=== PATIENT | male | born 1975 | race Caucasian/White ===

== ENCOUNTER 2018-09-23 10:42 | Emergency (ER) | payer MEDICARE, OTHER ==
[~2018-09-23] VITALS: Ht 167.6 cm; Wt 72.6 kg
[~2018-09-23 10:42] MED LIST: CITALOPRAM HBR40 MG PO; DEBROX15 ML OT; DIVALPROEX SOD500 M1 PO; FLOVENT DISKUS50 MCG IH; GABAPENTIN400 MG PO; HYDROCERIN CRE454 GM TP; IBUPROFEN200 M1 PO; IBUPROFEN400 MG PO; LOPERAMIDE2 MG PO; LORATADINE10 MG PO; MELOXICAM15 MG PO; TRIPLE ANTIBIOT28 GM TP
[2018-09-23] MEDS ORDERED: WELLBUTRIN XL300 MG PO (11:15)
[2018-09-23] MEDS ORDERED: HYDROCHLOROTH12.5 M1 PO (11:16)
[2018-09-23] MEDS ORDERED: RISPERDAL0.5 MG PO ×2 (11:17→12:27)
[2018-09-23] MEDS ORDERED: OMEPRAZOLE20 MG PO (11:17)
[2018-09-23] MEDS ORDERED: VITAMIN D250000 UNIT PO (11:18)
[2018-09-23] MEDS ORDERED: CITALOPRAM HBR40 MG PO (12:27)
[2018-09-23] MEDS ORDERED: BUPROPION XL300 MG PO (12:27)
[2018-09-23] MEDS ORDERED: NEURONTIN400 MG PO (12:27)
== END 2018-09-23 12:50 | disposition home or self-care (01) ==
LOC: ED 10:42
DX: Z76.0 Encounter for issue of repeat prescription (principal); F31.9 Bipolar disorder, unspecified; Z79.899 Other long term (current) drug therapy
CPT/HCPCS: 99281

== ENCOUNTER 2024-01-18 06:35 | Day surgery (SDC) | payer MEDICARE, OTHER ==
[2024-01-12 13:29] VITALS: BP 120/71
[~2024-01-18] VITALS: Ht 167.6 cm; Wt 87.1 kg
[~2024-01-18 06:35] MED LIST changes: +BUPROPION XL300 MG PO; +HYDROCHLOROTH12.5 M1 PO; +LACTATED RINGER'S 1,000 ML IV SCH; +NEURONTIN400 MG PO; +OMEPRAZOLE20 MG PO; +RISPERDAL0.5 MG PO; +VITAMIN D250000 UNIT PO; +WELLBUTRIN XL300 MG PO
[2024-01-18 06:43] VITALS: BP 121/75
[2024-01-18] MEDS ORDERED: propofoL 200 MG/20 ML VIAL ONE (06:44)
[2024-01-18] MEDS ORDERED: MIDAZOLAM HCL 5 MG/5 ML VIAL ONE (06:53)
[2024-01-18] MEDS ORDERED: IBLOOD GLUCOSE TEST STRIP 1 EA TEST VI PRN (07:00)
[2024-01-18] MEDS ORDERED: LIDOCAINE HCL 1% 5 ML SDV INJ ONE (07:00)
--- NOTE | 2024-01-18 07:18 | NUR ---
PT JUST LEAVING FOR PROCEDURE. PROVIDED PRAYER.
[2024-01-18] MEDS ORDERED: LACTATED RINGER'S 1,000 ML IV ONE (07:36)
--- NOTE | 2024-01-18 08:01 | NUR ---
01/18/24 0801 Lakeisha Barnett PATIENT ARRIVES IN PACU WITH ORAL AND NASAL AIRWAY IN PLACE TO MOUTH. SNORING RESPIRATIONS HEARD ON INSPIRATION.
[2024-01-18 08:37] VITALS: BP 118/75
--- NOTE | 2024-01-18 10:53 | OR ---
[facility] [address] [place], [place] [address] Signed DATE OF OPERATION: 01/18/2024 SURGEON: Mariely Fang MD PREOPERATIVE DIAGNOSES: 1. Screening. 2. Internal hemorrhoids. POSTOPERATIVE DIAGNOSES: 1. Long redundant colon. 2. 4 mm polyps x2 in left colon. 3. 12 mm polyp distal right colon (#1, snare). 4. 7 mm polyp distal right colon (#2, snare, hot biopsy). 5. Minimal to moderate internal hemorrhoids. PROCEDURE: Colonoscopy with snare polypectomy and hot biopsy. ESTIMATED BLOOD LOSS: None. INDICATIONS: Aniceto is a 48-year-old gentleman with significant mental disabilities and anxiety. He came to us in 2013 at the age of 38 for a colonoscopy due to rectal bleeding. He had some blood associated with bowel movements and wiping. He had some internal hemorrhoids. He had a shallow gluteal pressure injury that has healed as well. Of course, he needed moderate anesthesia care. We had to give him Versed just to transport him from our preop area down the hallway into our endoscopy suite. Consequently, on this occasion we gave him some Xanax before he came in the building. We then gave him additional Versed to get him into the endoscopy suite. To our knowledge, he has no family history of colon cancer or polyps. He seems to have no lower GI complaints currently. He is here mainly for screening purposes. In the office, I met with Aniceto and his caregiver. I gave him a pamphlet on colonoscopy. We reviewed the nature of the test along with the risk including, but not limited to gas bloating, crampy abdominal pain, bleeding, perforation requiring surgery, and missed diagnosis. We also reviewed the written instructions for bowel prep line by line. This is the same bowel prep he took previously. Nevertheless, his bowel prep was not the best today. He should increase the polyethylene glycol to full one gallon and continue with the Dulcolax tablets. In addition, he clearly needs monitored anesthesia care given his mental disabilities and severe anxiety. He and his caregiver had expressed understanding and Electronically Signed By: MARIELY FANG MD 01/18/24 1053 PATIENT NAME: ANICETO TRUJILLO OPERATIVE REPORT DATE OF : 75 REPORT #: [id number] PHYSICIAN: MARIELY FANG MD PCP: BRIONNA POLANCO PA-C REPORT IS CONFIDENTIAL AND NOT TO BE RELEASED WITHOUT AUTHORIZATION [facility] [address] [place], [place] [address] Signed wished to proceed. DESCRIPTION OF PROCEDURE: Aniceto was taken into our endoscopy suite and placed in the left lateral decubitus position. He had received Xanax before he came in the building this morning. We had to give him 5 mg of Versed to transport him from our day surgery area into the endoscopy suite itself. After this, he was given propofol infusion per our nurse soldering machine feeder. A digital rectal exam was performed. He had no external hemorrhoids. He had good sphincter tone. His prostate is starting to get indurated. The adult colonoscope was then introduced and we had to suction out some liquid particulate stool matter from the rectum. We went up through a somewhat tortuous sigmoid colon and somewhat long redundant colon as well. We took two small polyps out of his left colon on our way in. With abdominal compression and increased propofol infusion, we made it around the hepatic flexure and we found two polyps that required the snare and the hot biopsy forceps to be removed completely. It took some effort then in rotating him into the supine position and back in the left lateral decubitus position to get the camera down into the cecum itself. After this, the scope was then slowly withdrawn. We taken several pictures throughout for photodocumentation. We could easily see the appendiceal orifice and the ileocecal valve. He has no diverticulosis. Once in the rectum, the scope was retroflexed and again he just has minimal to moderate internal hemorrhoid columns. The gas was suctioned out and the colonoscope removed. Aniceto tolerated the procedure quite well. RECOMMENDATIONS: I will see Aniceto back in my office in 7 to 14 days to review his results. In the future, he will always need monitored anesthesia care as described above. He should increase the bowel prep to a full gallon of polyethylene glycol throughout the day along with some Dulcolax tablets. Mariely Fang MD ALB/MODL /[id number] cc: Brionna Polanco PA-C Electronically Signed By: MARIELY FANG MD 01/18/24 1053 PATIENT NAME: ANICETO TRUJILLO OPERATIVE REPORT DATE OF : 75 REPORT #: [id number] PHYSICIAN: MARIELY FANG MD PCP: BRIONNA POLANCO PA-C REPORT IS CONFIDENTIAL AND NOT TO BE RELEASED WITHOUT AUTHORIZATION [facility] [address] [place], [place] [address] Signed Mariely Fang MD Copies: BRIONNA POLANCO PA-C, ANDREW L MD ~ Electronically Signed By: MARIELY FANG MD 01/18/24 1053 PATIENT NAME: CASSANDRAANICETO OPERATIVE REPORT DATE OF : 75 REPORT #: [id number] PHYSICIAN: MARIELY FANG MD PCP: BRIONNA POLANCO PA-C REPORT IS CONFIDENTIAL AND NOT TO BE RELEASED WITHOUT AUTHORIZATION
--- NOTE | 2024-01-20 11:42 | PATH ---
[facility] [address] [place], [place] [address] Signed SPECIMEN(S): A DISTAL LEFT COLON POLYP SPECIMEN(S): B PROXIMAL LEFT COLON POLYP SPECIMEN(S): C DISTAL RIGHT COLON POLYP SPECIMEN(S): D DISTAL RIGHT COLON POLYPS #2 SPECIMEN SOURCE: A. DISTAL LEFT COLON POLYP B. PROXIMAL LEFT COLON POLYP C. DISTAL RIGHT COLON POLYP D. DISTAL RIGHT COLON POLYPS #2 CLINICAL HISTORY: Colon surveillance, history of internal hemorrhoids/internal hemorrhoids, colon polyps FINAL PATHOLOGIC DIAGNOSIS: A. Distal left colon polyp, biopsy: - Hyperplastic polyp. B. Proximal left colon polyp, biopsy: - Tubular adenoma. C. Distal right colon polyp, biopsies: - Fragments of tubular adenoma. D. Distal right colon polyp #2, biopsies: - Fragments of tubular adenoma. AMB MICROSCOPIC EXAMINATION: Histologic sections of all submitted blocks are examined by light microscopy. These findings, together with the gross examination, support the pathologic diagnosis. GROSS DESCRIPTION: A. The specimen, labeled and designated "Jesu, distal left colon polyp," is received in formalin and consists of one lyn soft tissue fragment, 0.2 cm. Entirely submitted in (A1). B. The specimen, labeled and designated "Jesu, proximal left colon polyp," is received in formalin and consists of one lyn soft tissue fragment, 0.2 cm. Entirely submitted in (B1). C. The specimen, labeled and designated "Jesu, distal right colon polyp," is received in formalin and consists of multiple lyn soft tissue fragments, 0.1-0.3 cm. Entirely submitted in (C1). PATIENT NAME: ANICETO TRUJILLO PATHOLOGY DATE OF : 75 REPORT #: [id number] PHYSICIAN: LUIS MURRAY PCP: SHREYAS LEMUS PA-C REPORT IS CONFIDENTIAL AND NOT TO BE RELEASED WITHOUT AUTHORIZATION [facility] [address] [place], [place] [address] Signed D. The specimen, labeled and designated "Jesu, distal right colon polyps #2," is received in formalin and consists of three lyn soft tissue fragments, ranging from 0.2-0.4 cm. Entirely submitted in (D1). VB (under the direct supervision of a pathologist) The Gross Description was prepared using a voice recognition system. The report was reviewed for accuracy; however, sound-alike word errors, addition and/or deletions may occur. If there is any question about this report, please contact Client Services. ADDITIONAL NOTES: Immunohistochemical and/or in situ hybridization studies if performed in this case included appropriate positive controls that reacted as expected. This test was developed and its performance characteristics determined by [facility]. It has not been cleared or approved by the U.S. Food and Drug Administration. The FDA has determined that such clearance or approval is not necessary. This test is used for clinical purposes. It should not be regarded as investigational or for research. [facility] is certified under the Clinical Laboratory Improvement Amendments of 1988 (CLIA) as qualified to perform high complexity clinical laboratory testing. PERFORMING LABORATORY: Technical component was performed by [facility], [address] [place] [address] (CLIA# [id number]). Professional interpretation was performed by [facility] - [address] [id number] Diagnostician: Emely Mitchell MD Pathologist Electronically Signed 01/20/2024 Copies: ~ PATIENT NAME: ANICETO TRUJILLO PATHOLOGY DATE OF : 75 REPORT #: [id number] PHYSICIAN: LUIS MURRAY PCP: SHREYAS LEMUS PA-C REPORT IS CONFIDENTIAL AND NOT TO BE RELEASED WITHOUT AUTHORIZATION
[2024-01-26] MEDS ORDERED: ACETAMINOPHEN325 M1 PO (15:35)
[2024-01-26] MEDS ORDERED: DEBROX SWIMMER'30 ML OT (15:35)
[2024-01-26] MEDS ORDERED: LAXA BASIC PO (15:36)
[2024-01-26] MEDS ORDERED: DRIZALMA SPRINK30 MG PO (15:37)
== END 2024-01-18 08:44 | disposition home or self-care (01) ==
LOC: OPS 06:35 → DS 06:35 → OPS 08:30 → DS 09:00
PROVIDERS: ATTEND Colon & Rectal Surgery
PROC: 0DBF8ZX Excision of Right Large Intestine, Via Natural or Artificial Opening Endoscopic, Diagnostic (ICD-10-PCS; 2024-01-18)
PROC: 0DBG8ZX Excision of Left Large Intestine, Via Natural or Artificial Opening Endoscopic, Diagnostic (ICD-10-PCS; principal; 2024-01-18 08:30)
DX: Z12.11 Encounter for screening for malignant neoplasm of colon (principal); D12.6 Benign neoplasm of colon, unspecified; K64.8 Other hemorrhoids; K63.89 Other specified diseases of intestine; K21.9 Gastro-esophageal reflux disease without esophagitis; F39 Unspecified mood [affective] disorder; Z79.899 Other long term (current) drug therapy
CPT/HCPCS: 00811; 80053; 85025; 88305; J2250; J2704; J7121

== ENCOUNTER 2024-01-27 06:15 | Day surgery (SDC) | payer MEDICARE, OTHER ==
[~2024-01-27] VITALS: Ht 167.6 cm; Wt 85.9 kg
[~2024-01-27 06:15] MED LIST changes: +ACETAMINOPHEN325 M1 PO; +DEBROX SWIMMER'30 ML OT; +DRIZALMA SPRINK30 MG PO; +LAXA BASIC PO
[2024-01-27 06:34] VITALS: BP 124/77
[2024-01-27] MEDS ORDERED: LIDOCAINE HCL 1% 5 ML SDV INJ ONE (07:00)
[2024-01-27] MEDS ORDERED: IBLOOD GLUCOSE TEST STRIP 1 EA TEST VI PRN ×2 (07:00→08:45)
[2024-01-27] MEDS ORDERED: ondansetron HCL 4 MG/2 ML VIAL ONE (08:01)
[2024-01-27] MEDS ORDERED: propofoL 200 MG/20 ML VIAL ONE (08:01)
[2024-01-27] MEDS ORDERED: DEXAMETHASONE SOD PHOS 4 MG/ML VIAL ONE (08:01)
[2024-01-27] MEDS ORDERED: SUGAMMADEX SODIUM 200 MG/2 ML ML ONE (08:01)
[2024-01-27] MEDS ORDERED: fentaNYL citrate 100 MCG/2 ML VIAL ONE (08:01)
[2024-01-27] MEDS ORDERED: ROCURONIUM BROMIDE 50 MG/5 ML SYR ONE (08:01)
[2024-01-27] MEDS ORDERED: LIDOCAINE HCL 2% 5 ML SDV ONE (08:01)
[2024-01-27] MEDS ORDERED: MIDAZOLAM HCL 2 MG/2 ML VIAL ONE (08:32)
[2024-01-27] MEDS ORDERED: PROCHLORPERAZINE EDISYLATE 10 MG/2 ML VIAL IV PRN (08:45)
[2024-01-27] MEDS ORDERED: fentaNYL citrate 50 MCG/ML SDV IV PRN (08:45)
[2024-01-27] MEDS ORDERED: HYDROmorphone HCL 1 MG/ML SYR IV PRN (08:45)
[2024-01-27] MEDS ORDERED: ondansetron HCL 4 MG/2 ML VIAL IV PRN (08:45)
[2024-01-27] MEDS ORDERED: droPERidol 5 MG/2 ML VIAL IV PRN (08:45)
[2024-01-27] MEDS ORDERED: NALOXONE HCL 0.4 MG SYR IV PRN (08:45)
[2024-01-27] MEDS ORDERED: ACETAMINOPHEN 1,000 MG/100 ML VIAL ONE (08:55)
[2024-01-27] MEDS ORDERED: LACTATED RINGER'S 1,000 ML IV ONE (09:19)
--- NOTE | 2024-01-27 09:51 | NUR ---
01/27/24 0951 Lakeisha Barnett 0936: PATIENT ARRIVED IN PACU WITH ORAL AIRWAY IN PLACE. PATIENT IS UNRESPONSIVE. JAW THRUST REQUIRED FOR ADEQUATE GAS EXCHANGE. 0949: PATIENT OPENS HIS EYES. ORAL AIRWAY IS REMOVED. HE IS RESTING QUIETLY WITH HIS EYES CLOSED. RESPIRATIONS EVEN AND UNLABORED. SNORING HEARD.
--- NOTE | 2024-01-27 10:15 | NUR ---
PT ARRIVES BACK TO UNIT FROM PACU VIA STRETCHER. PT IS A&O AND REPORTS NO PAIN AT THIS TIME. PT ASKING APPROPRIATE QUESTIONS. JOHN (PASTE UP COPY CAMERA OPERATOR) AT BEDSIDE. PT AND PASTE UP COPY CAMERA OPERATOR EDUCATED ABOUT NO USE OF STRAWS AND ONLY SOFT FOODS FOR 72 HOURS. PT ON 2L OF O2 W/O2 >90% VIA PULSE OX AT THIS TIME. STRETCHER IN LOWEST POSITION, CALL LIGHT WITHIN REACH. PT REPORTS NO FURTHER NEEDS AT THIS TIME AND EATING PUDDING WITHOUT DIFFICULTY. JOHN (PASTE UP COPY CAMERA OPERATOR) REMAINS AT BEDSIDE.
[2024-01-27 10:21] VITALS: BP 126/71
--- NOTE | 2024-01-27 10:40 | NUR ---
PT UP TO BATHROOM W/THIS RN AND JOHN (CLIP RIVETER) STANDBY ASSIST. URINE VOID QUANTITY SUFFICIENT AT THIS TIME. PT NOW BACK IN BED W/WARM BLANKET AND WATCHING TV. PUDDING CONSUMED, ICE WATER AT BEDSIDE. CALL LIGHT WITHIN REACH, NO FURTHER NEEDS AT THIS TIME. CLIP RIVETER REMAINS AT BEDSIDE.
[2024-01-27 10:56] VITALS: BP 120/76
--- NOTE | 2024-01-27 11:00 | NUR ---
IN PT ROOMS FOR VS AND ASSESSMENT. PT STATES HE WANTS TO GO HOME. NO ACUTE CHANGES FROM PREVIOUS ASSESSMENT. SMALL AMOUNT OF SS DRAINAGE ON EDGE OF DRINKING CUP, BUT NO ACTIVE BLEEDING VISIBLE AT THIS TIME. PT CONTINUES TO REPORT NO PAIN OR NAUSEA. VS TAKEN. IV DC'ED, WNL, GAUZE/COBAN IN PLACE. PT GETTING DRESSED AT THIS TIME, JOHN (MECHANIC RECOVERY) IN ROOM TO ASSIST.
--- NOTE | 2024-01-27 11:10 | NUR ---
DISCHARGE EDUCATION PROVIDED TO PT AND JOHN (TOBACCO STRIPPER HAND). BOTH STATE NO FURTHER QUESTIONS AT THIS TIME AND VERBAL UNDERSTANDING. PT OFF OF UNIT AMBULATORY (PT REFUSES TO USE WC), THIS RN STANDBY ASSIST. PT TO PASSENGER SIDE OF JOHN'S VAN. ALL BELONGINGS IN PT POSSESSION. PT TOBACCO STRIPPER HAND JOHN REPORTS NO FURTHER NEEDS OR QUESTIONS.
== END 2024-01-27 11:10 | disposition home or self-care (01) ==
LOC: DS 06:15
PROVIDERS: ATTEND Dentist General Practice
PROC: 0CDWXZ2 Extraction of Upper Tooth, All, External Approach (ICD-10-PCS; 2024-01-27)
PROC: 0CDXXZ2 Extraction of Lower Tooth, All, External Approach (ICD-10-PCS; principal; 2024-01-27 09:00)
DX: K02.9 Dental caries, unspecified (principal); E78.5 Hyperlipidemia, unspecified; F79 Unspecified intellectual disabilities
CPT/HCPCS: 00170; J0131; J1100; J2001; J2250; J2405; J2704; J3010; J3490; J7121

== ENCOUNTER 2024-04-29 15:46 | Emergency (ER) | payer MEDICARE, OTHER ==
[~2024-04-29] VITALS: Ht 167.6 cm; Wt 87.5 kg
[~2024-04-29 15:46] MED LIST changes: -LACTATED RINGER'S 1,000 ML IV SCH
[2024-04-29 18:00] VITALS: BP 116/88
== END 2024-04-29 18:00 | disposition home or self-care (01) ==
LOC: ED 15:46
DX: S92.422A Displaced fracture of distal phalanx of left great toe, initial encounter for closed fracture (principal); W22.09XA Striking against other stationary object, initial encounter; Z79.899 Other long term (current) drug therapy
CPT/HCPCS: 73630; 99283